=== PATIENT | male | born 1965 | race Caucasian/White ===

== ENCOUNTER 2017-12-24 16:30 | Outpatient (RCR) | payer OTHER ==
--- NOTE | 2017-10-29 17:30 | PT INITIAL EVALUATION ---
MEDICAL DIAGNOSIS: L shoulder pain TREATMENT DIAGNOSIS: Same DATE OF ONSET: 08/04/17 SUBJECTIVE: Rodolfo Kelly presents to PT for insidious onset of L shoulder pain over the last two months. He reports 45 to 100 deg. abduction impingement pain, otherwise his L shoulder is pain free. He's right-handed. Rodolfo had this problem 12 years ago and it resolved with PT of ROM, strengthening and manual therapy. Rodolfo notes he is a left-side sleeper. Pain location is L supraspinatus tendon and described as sharp grab. Pain scale is 4 on a ten point pain scale. Pain is worse with abduction reaching and better with rest, avoid abduction. REHAB PROBLEM LIST: Increased Pain Decreased ROM Decreased Strength Decreased Mobility PREVIOUS MEDICAL HISTORY: Thyroid disorder, sleep apnea. 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 Exercises with running , walking. OBJECTIVE: Posture: Slightly elevated L shoulder, glenoid high in the socket. ROM: AROM B shoulders WFL except L scaption, abduction 145 deg., PROM L shoulder abduction 145 degrees. Strength: L supraspinatus 5-/5, mild pain, otherwise L shoulder girdle 5/5. Palpation: Painful L supraspinatus tendon, otherwise unremarkable for pain about the L shoulder. Shoulder to neck, chest soft tissue is tight. Special Tests: Positive empty can, otherwise negative shoulder clearing tests. Mobility: Hypomobile glenohumeral and scapulothoracic joints, myofascial restrictions about the scapulothoracic joint. ASSESSMENT: Rodolfo Kelly presents with joint and soft tissue tightness creating shoulder impingement. His impingement arc improved from 45 to 100 degrees to 60 to 100 degrees with manual therapy today. Short Term Goals/Patient's Goals: 4 weeks: Rodolfo reaches into abduction without impingement zone pain. PLAN: Patient to be seen for Manual Therapy Strengthening/condition Ice/Heat Range of Motion Stretching Electrical Stim Home Exercise Program 2x/Week for 4 Weeks Thank you for this referral. If you have any questions, comments, or concerns about this report or plan, please contact me at . [facility]
--- NOTE | 2017-11-26 17:31 | PT PLAN OF CARE ---
Physician: Dr. Allegra Ricci Patient is being seen: 2x/week Therapist: Viv Ardon PT Medical Diagnosis: L shoulder pain Treatment Diagnosis: Same Date of Onset: 08/04/17 Date of Initial Evaluation: 10/29/17 Date patient was last seen: 11/26/17 Number of treatments: 8 Number of cancellations/No shows: 0 INTERVENTIONS: L shoulder ROM/Stretching, Muscle Balancing Strengthening, Manual Therapy, Home Exercise Program GOALS/PATIENT'S GOAL: 4 weeks: Rodolfo reaches into abduction without impingement zone pain. progressing Patient Compliance: Excellent Prognosis: Excellent Reasons for continuing therapy: S: Rodolfo relates some days he has impingement pain, or jared-scapular ache, and now some days he has minimal to no L shoulder pain. He can lay on his L shoulder now. Rodolfo was able to bike across town today without L shoulder pain. Posture: Even shoulders, glenoid slightly high in the socket. ROM: AROM L abduction now 170 deg., mild scapular elevation, impingement zone reduced to 80-100 degrees, pain 1/10. Strength: L supraspinatus still 5-/5, mild pain. Palpation: Tender L supraspinatus tendon. Shoulder to neck, chest soft tissue is tight. Special Tests: Positive empty can for mild symptoms. Mobility: Hypomobile glenohumeral posterior, slightly in the posterior capsule > 90 degrees now and scapulothoracic joints medial glide is still restricted. A/P: Rodolfo Kelly is improving his ROM and reducing pain. He has fibrous myofascial tissue and mobilizes gradually. If you agree, we'll continue 2x/ week for another 4 weeks to work to goals set. Thank you. MIAH
--- NOTE | 2017-12-24 17:45 | PT PLAN OF CARE ---
Physician: Dr. Allegra Ricci Patient is being seen: 2x/week Therapist: Viv Ardon, [place] Medical Diagnosis: L shoulder pain Treatment Diagnosis: Same Date of Onset: 08/04/17 Date of Initial Evaluation: 10/29/17 Date patient was last seen: 12/24/17 Number of treatments: 15 Number of cancellations/No shows: 0 INTERVENTIONS: L rotator cuff and scapular muscle balancing stretching and strengthening, Manual therapy, HEP Home Exercise Program GOALS/PATIENT'S GOAL: 4 weeks: Rodolfo reaches into abduction without impingement zone pain. partially met - pain reduced to 1/10. Patient Compliance: Good Prognosis: Excellent Reasons for discontinuing therapy: S: Rodolfo reports L shoulder impingement ache with abduction, backstroke motion. He's able to sleep on his L side without shoulder pain. Posture: Mild L shoulder protraction. ROM: AROM L shoulder flexion 155 degrees, abduction 175 deg., ER 80 deg., IR T7. Strength: L supraspinatus 4+/5, mild pain, otherwise L shoulder girdle 5/5. Palpation: Tender L supraspinatus tendon. Special Tests: Negative L AC, nerve glides, mild symptoms with empty can test. Mobility: L shoulder joint mobility WNL. A/P: Rodolfo Kelly has improved ROM, posture, L shoulder joint mobility, level of impingement zone pain and can continue strengthening with his advanced HEP. He's unavailable for PT for the next 10 weeks, so I'll close his PT case for now. If Rodolfo would like to return to PT in March, I'd be happy to work with him. Thank you. MIAH
== END 2017-12-24 18:00 | disposition home or self-care (01) ==
LOC: PT 16:30
PROVIDERS: ATTEND Family Medicine
DX: M25.512 Pain in left shoulder (principal); E07.9 Disorder of thyroid, unspecified; G47.30 Sleep apnea, unspecified
CPT/HCPCS: 97161

== ENCOUNTER → 2018-08-13 | Outpatient (CLI) | payer OTHER ==
--- NOTE | 2018-08-13 16:31 | RADIOLOGY IMAGING REPORT ---
FACILITY: [facility] PATIENT NAME: Rodolfo Kelly : 1965 MR: [id number] V: [id number] EXAM DATE: ORDERING PHYSICIAN: OSCAR MAXWELL TECHNOLOGIST: Location: [facility] [place] Patient: Rodolfo Kelly : 1965 Visit/Account:[id number] Date of Sevice: 08/13/2018 Exam type: SHOULDER MIN 2 VIEWS LEFT History: Left shoulder pain, no known injury Comparison: None. Findings: Four views the left shoulder were submitted. Peritendinous calcifications are seen just superior to the left humeral head and adjacent to the bicipital groove. There is mild to moderate narrowing of t he left glenohumeral joint. No evidence of acute fracture or dislocation IMPRESSION: 1. Osteoarthritic changes the left shoulder as described above Report Dictated By: Juany Lopez MD at 08/13/2018 4:25 PM Report E-Signed By: Juany Lopez MD at 08/13/2018 4:26 PM WSN:[id number]
== END ==
LOC: RAD 15:59
PROVIDERS: ATTEND Family Medicine
DX: M25.512 Pain in left shoulder (principal)

== ENCOUNTER 2018-09-29 16:25 | Outpatient (RCR) | payer OTHER ==
--- NOTE | 2018-07-14 07:31 | PT INITIAL EVALUATION ---
MEDICAL DIAGNOSIS: Shoulder pain TREATMENT DIAGNOSIS: L shoulder pain and impingement, L cervical C5/6 rayo muscle weakness, cervical pain DATE OF ONSET: 06/04/18 SUBJECTIVE: Rodolfo Kelly returns to PT for his L shoulder pain. He did PT with me 10/29/17, and stopped when he had to work out of town. He states he had low grade L shoulder pain until June, when it flared again.. . Pain location is L lateral and posterior shoulder and described as ache. Pain scale is 5-8/10 worse with light weight lifting, L side lie position, trying to fall asleep, reaching into abduction and better with rest. REHAB PROBLEM LIST: Increased Pain, Decreased ROM, Rayo muscle weakness, Altered sleeping tolerance, Muscle imbalance PREVIOUS MEDICAL HISTORY: L shoulder pain, thyroid disorder, sleep apnea. 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 Exercises with running, walking, light weight lifting. OBJECTIVE: Posture: Protracted shoulders, forward head posture, B glenoids high in the fossa. ROM: A/PROM L shoulder, in degrees, flexion 160/165, abduction 155/160, painful arc, ER 85/90, mild sx, IR T10/WNL no pain, hz. add 45/50, hz abd. 10.10. R shoulder AROM close to L shoulder. Cervical AROM 75% rotation B, 75% flexion, 75% extension fulcruming from the mid-cervical region. Lower cervical extension minimal. Upper thoracic AROM grossly 75% flexion, 50% extension. Strength: L C5/6 rayo muscles 4+/5, otherwise rayo muscles C5-8 are 5/5. Palpation: Painful L supraspinatus tendon, L C4/5/6 facets. Special Tests: DTR's UE's 2/3 except L biceps 1/3. Cervical joint mobilization improves AROM rotation B to full but then L shoulder pain increases to 8/10 with abduction, and L shoulder AROM abduction reduced to 130 degrees. L AC joint tests positive for pain. Mobility: Hypomobile L shoulder joints and cervical, thoracic joints. B pecs and biceps are extremely tight. ASSESSMENT: Rodolfo Kelly presents with L shoulder impingement from AC joint and L C5/6 rayo muscle weakness causing postural muscle imbalance, cervical pain. He's started on a cervical ROM HEP today. Short Term Goals/Patient's Goals 4 weeks: Rodolfo demonstrates full L shoulder AROM abduction with impingement pain 08/13, lifts wights without L shoulder pain. 8 weeks: L C5/6 rayo muscles 5/5, no L shoulder or cervical pain with exercise, sleeping at night. PLAN: Patient to be seen for Manual Therapy/STM/MET Strengthening/condition Ice/Heat Range of Motion Spinal Stabilization Stretching Electrical Stim Posture/Body mechanics Home Exercise Program 2x/Week for 2 Months Thank you for this referral. If you have any questions, comments, or concerns about this report or plan, please contact me at . [facility]
--- NOTE | 2018-08-11 17:23 | PT PLAN OF CARE ---
Physician: Dr. Allegra Ricci Patient is being seen: 1-2x/week Therapist: Viv Ardon PT Medical Diagnosis: Shoulder pain Treatment Diagnosis: L shoulder pain, impingement, L cervical C5/6 dyson muscle weakness and cervi Date of Onset: 06/04/18 Date of Initial Evaluation: 07/13/18 Date patient was last seen: 08/10/18 Number of treatments: 6 Number of cancellations/No shows: 2 INTERVENTIONS: Manual Therapy, Range of Motion/Stretching, Home Exercise Program GOALS/PATIENT'S GOAL: 4 weeks: Rodolfo demonstrates full L shoulder AROM abduction with impingement pain /10 (met), lifts wights without L shoulder pain (not met). 8 weeks: L C5/6 dyson muscles 5/5 (met except for biceps and supraspinatus (shoulder impingement)), no L shoulder (progressing) or cervical (met) pain with exercise, sleeping at night. Patient Compliance: Excellent Prognosis: Excellent Reasons for continuing therapy: S: Rodolfo relates he can don coats, sleep better with less shoulder impingement pain. Posture: Less protracted shoulders. ROM: AROM L shoulder abduction with impingement zone pain /10. Cervical AROM full and not shoulder symptoms. Strength: L C5/6 dyson muscles 5/5 except biceps and supraspinatus 5-.5, L shoulder pain. Special Tests: L AC joint tests remain positive for the most shoulder pain. Mobility: Improved L shoulder joint mobility except inferior and posterior capsules. A/P: Rodolfo Kelly is reducing impingement pain, has cleared the cervical spine but seems to have AC joint pain remaining. Would you consider an x-ray of the L shoulder to see if there's an AC joint spur or OA? If you agree, we'll continue at 1-2x/week with strong shoulder stretching/mobilization and muscle balancing. Thank you. MIAH
--- NOTE | 2018-08-28 17:36 | PT PLAN OF CARE ---
Physician: Dr. Allegra Ricci Patient is being seen: 2x/week Therapist: Viv Ardon PT Medical Diagnosis: Shoulder pain Treatment Diagnosis: L shoulder pain, impingement, L C5/6 dyson muscle weakness and cervical pain Date of Onset: 06/04/18 Date of Initial Evaluation: 07/13/18 Date patient was last seen: 08/28/18 Number of treatments: 20 Number of cancellations/No shows: 3 INTERVENTIONS: Manual Therapy, Strengthening, US, Home Exercise Program GOALS/PATIENT'S GOAL: 4 weeks: Rodolfo demonstrates full L shoulder AROM abduction with impingement pain 1/10 (met), lifts wights without L shoulder pain (not met). 8 weeks: L C5/6 dyson muscles 5/5 (met except for biceps and supraspinatus (shoulder impingement)), no L shoulder (progressing) or cervical (met) pain with exercise, sleeping at night (met). Patient Compliance: Excellent Prognosis: Excellent Reasons for continuing therapy: S: Rodolfo rates L shoulder impingement pain 0.5 to 2/10. He's sleeping without shoulder pain. His x-ray is positive for supraspinatus calcification, so we're now doing cross-friction massage and US which is reducing pain. Posture: Even shoulders ROM: A/PROM L shoulder full/full, mild pain at 90 deg. abduction. Cervical AROM WNL. Strength: L C5/6 dyson muscles 5/5, except supraspinatus and biceps 5-/5. Palpation: Tender L supraspinatus tendon. Mobility: Normal mobility L shoulder joints. A/P: Rodolfo Kelly is reducing pain, still has a gritty feel to his supraspinatus tendon, but improving. If you agree, we'll continue 2x/week 4 weeks including US, cross-friction massage and L shoulder strengthening. Thank you. MIAH
--- NOTE | 2018-09-30 08:15 | PT PLAN OF CARE ---
Physician: Dr. Allegra Ricci Patient is being seen: 2x/week Therapist: Viv Ardon PT Medical Diagnosis: Shoulder pain Treatment Diagnosis: L shoulder pain, impingement, L cervical C5/6 dyson muscle weakness and cervical pain Date of Onset: 06/04/18 Date of Initial Evaluation: 07/13/18 Date patient was last seen: 09/29/18 Number of treatments: 28 Number of cancellations/No shows: 3 INTERVENTIONS: Manual Therapy, Strengthening/condition, Range of Motion, Stretching, Home Exercise Program GOALS/PATIENT'S GOAL: 4 weeks: Rodolfo demonstrates full L shoulder AROM abduction with impingement pain /10 (met), lifts wights without L shoulder pain (met). 8 weeks: L C5/6 dyson muscles 5/5 (met except for supraspinatus 5-/5 ), no L shoulder or cervical pain with exercise, sleeping at night (met). Patient Compliance: Excellent Prognosis: Excellent Reasons for discontinuing therapy: S: Rodolfo relates he has impingement pain with the AC compression test .5-10, not with abduction. He's lifting weights again without shoulder pain, sleeping without shoulder or cervical pain. O: AROM L shoulder WNL all directions, pain free, normal shoulder joints mobility. Strength: L shoulder, shoulder girdle 5/5 except supraspinatus. A/P: Rodolfo Kelly has improved mobility, ROM, strength to resolve shoulder pain, except mild OA impingement pain. I'll DC PT to his gym HEP. Thank you. MIAH
== END 2018-09-29 18:00 | disposition home or self-care (01) ==
LOC: PT 16:25
PROVIDERS: ATTEND Family Medicine
DX: M25.512 Pain in left shoulder (principal); M62.81 Muscle weakness (generalized); M54.2 Cervicalgia
CPT/HCPCS: 97162